=== PATIENT | female | born 1970 | race Caucasian/White ===

== ENCOUNTER 2018-12-07 21:00 | Emergency (ER) | payer MEDICAID, OTHER ==
[~2018-12-07] VITALS: Ht 157.5 cm; Wt 92.0 kg
[~2018-12-07 21:00] MED LIST: ABAT125S; CITA40TA17 PO; LISI10TA4 PO; TERI2.4P SUBCUT
[2018-12-07 21:33] VITALS: BP 124/77
[2018-12-07] MEDS ORDERED: dexamethasone sod phosphate 10mg/ml inj PO STA (23:02)
[2018-12-07] MEDS ORDERED: ketorolac trometh. 30mg/ml inj. IM ONE (23:05)
[2018-12-07] MEDS ORDERED: ROBDML PO (23:07)
[2018-12-07] MEDS ORDERED: AMOX-419 PO (23:07)
[2018-12-07] MEDS ORDERED: ALBU18HF2 INH (23:07)
== END 2018-12-07 23:49 | disposition home or self-care (01) ==
LOC: ER 21:03
DX: J02.9 Acute pharyngitis, unspecified (principal); J04.0 Acute laryngitis; I10 Essential (primary) hypertension; M19.90 Unspecified osteoarthritis, unspecified site; E78.00 Pure hypercholesterolemia, unspecified; Z90.710 Acquired absence of both cervix and uterus; Z88.1 Allergy status to other antibiotic agents
CPT/HCPCS: 96372; 99283; J1100; J1885

== ENCOUNTER 2019-02-17 14:30 | Emergency (ER) | payer MEDICAID ==
[~2019-02-17] VITALS: Ht 157.5 cm; Wt 93.0 kg
[~2019-02-17 14:30] MED LIST changes: +ALBU18HF2 INH; +ROBDML PO
[2019-02-17] MEDS ORDERED: ketorolac trometh. 30mg/ml inj. IV ONE (14:55)
[2019-02-17] MEDS ORDERED: morphine 4 MG/ML inj SYRINge IV ONE (14:55)
[2019-02-17] MEDS ORDERED: ondansetron/PF 4mg/2ml inj IV ONE (14:55)
[2019-02-17 14:59] LABS: BASOPHILS % (AUTO) 0.5 % (0-1); EOSINOPHILS # (AUTO) 0.1 X10'3 (0-0.9); EOSINOPHILS % (AUTO) 1.1 % (0-6); HEMATOCRIT 42.3 % (35.0-45.0); HEMOGLOBIN 14.3 g/dl (12.0-16.0); LYMPHOCYTES # (AUTO) 3.5 X10'3 (1.1-4.8); LYMPHOCYTES % (AUTO) 37.2 % (21-51); MEAN CORPUSCULAR HEMOGLOBIN 30.5 PG (27.0-31.0); MEAN CORPUSCULAR HGB CONC 33.8 g/dL (33.0-36.5); MEAN CORPUSCULAR VOLUME 90.2 FL (78-98); MEAN PLATELET VOLUME 8.1 FL (7.4-10.4); MONOCYTES # (AUTO) 0.5 X10'3 (0-0.9); MONOCYTES % (AUTO) 5.6 % (2-12); NEUTROPHILS # (AUTO) 5.3 X10'3 (1.8-7.7); NEUTROPHILS % (AUTO) 55.6 % (42-75); PLATELET COUNT 261 X10'3 (140-440); RED BLOOD COUNT 4.69 X10'6 (4.20-5.60); RED CELL DISTRIBUTION WIDTH 13.2 % (11.5-14.5); WHITE BLOOD COUNT 9.5 X10'3 (4.5-11.0)
[2019-02-17 15:14] LABS: ALANINE AMINOTRANSFERASE 39 U/L (12-78); ALBUMIN 3.8 G/DL (3.4-5.0); ALKALINE PHOSPHATASE 89 IU/L (46-116); ANION GAP 9 (8-16); ASPARTATE AMINO TRANSFERASE 17 U/L (10-37); BILIRUBIN,TOTAL 0.4 MG/DL (0.1-1.0); BLOOD UREA NITROGEN 10 MG/DL (7-18); BUN/CREATININE RATIO 12.3 (6.6-38.0); CALCIUM 9.3 MG/DL (8.5-10.1); CHLORIDE 104 MMOL/L (99-107); CREATININE 0.81 MG/DL (0.40-0.90); GLUCOSE 221 MG/DL (70-104); LIPASE 64 U/L (73-393); POTASSIUM 3.8 MMOL/L (3.5-5.1); SODIUM 140 MMOL/L (135-145); TOTAL CARBON DIOXIDE 27.5 MMOL/L (24-32); TOTAL PROTEIN 7.5 G/DL (6.4-8.2); eGFR 75 ML/MIN
[2019-02-17 15:33] LABS: URINE HCG NEGATIVE (NEG)
[2019-02-17 15:34] LABS: CLARITY,URINE CLOUDY (Clear); COLOR,URINE YELLOW (Yellow); GLUCOSE, URINE 250 mg/dl (Neg); KETONES,URINE NEGATIVE (Neg); LEUKOCYTE ESTERASE ,URINE MODERATE (Neg); NITRITES, URINE POSITIVE (Neg); OCCULT BLOOD,URINE MODERATE (Neg); PROTEIN,URINE 100 mg/dl (Neg); UROBILINOGEN,URINE 0.2 E.U/dL (0.2-1.0)
[2019-02-17 15:36] LABS: UA COLLECTION TYPE NON-SPECIFIED
[2019-02-17 15:44] LABS: BACTERIA,URINE 1+ /HPF (Neg); MUCUS STRANDS NONE SEEN /LPF (Neg); RENAL CELLS, URINE FEW /HPF; SQUAMOUS EPITHELIAL CELL,UR FEW /LPF (FEW); WBC CLUMPS,URINE MODERATE /HPF (NEGATIVE); WBC,URINE TNTC /HPF (0-4)
[2019-02-17] MEDS ORDERED: CefTRIAXone 2gm/D5W 50ml 50 ML IV ONE (15:50)
[2019-02-17] MEDS ORDERED: ciprofloxacin 250mg tablet PO ONE (16:10)
[2019-02-17] MEDS ORDERED: CIPR-230 PO (16:10)
[2019-02-17 16:35] VITALS: BP 105/52
== END 2019-02-17 16:39 | disposition home or self-care (01) ==
LOC: ER 14:31
DX: N12 Tubulo-interstitial nephritis, not specified as acute or chronic (principal); E78.00 Pure hypercholesterolemia, unspecified; I10 Essential (primary) hypertension; M06.9 Rheumatoid arthritis, unspecified; F32.9 Major depressive disorder, single episode, unspecified; Z90.710 Acquired absence of both cervix and uterus; Z98.890 Other specified postprocedural states; Z88.1 Allergy status to other antibiotic agents; Z79.2 Long term (current) use of antibiotics; Z79.899 Other long term (current) drug therapy
CPT/HCPCS: 36415; 74176; 80053; 81001; 81025; 83690; 85025; 87088; 96365; 96375; 99284; J0696; J1885; J2270; J2405; 87077; 87186

== ENCOUNTER 2019-03-03 12:11 | Emergency (ER) | payer MEDICAID ==
[~2019-03-03] VITALS: Ht 157.5 cm; Wt 93.0 kg
[~2019-03-03 12:11] MED LIST changes: +CIPR-230 PO
[2019-03-03] MEDS ORDERED: normal saline 1000ML IV soln IVB ONE (12:40)
[2019-03-03] MEDS ORDERED: ondansetron/PF 4mg/2ml inj IV ONE (12:40)
[2019-03-03] MEDS ORDERED: ketorolac trometh. 30mg/ml inj. IV ONE (12:40)
[2019-03-03] MEDS: morphine 4 MG/ML inj SYRINge IV PRN ×2 (12:51→13:51)
[2019-03-03 12:54] LABS: BASOPHILS % (AUTO) 0.7 % (0-1); EOSINOPHILS # (AUTO) 0.1 X10'3 (0-0.9); EOSINOPHILS % (AUTO) 1.9 % (0-6); HEMATOCRIT 39.6 % (35.0-45.0); HEMOGLOBIN 13.4 g/dl (12.0-16.0); LYMPHOCYTES # (AUTO) 3.3 X10'3 (1.1-4.8); LYMPHOCYTES % (AUTO) 51.4 % (21-51); MEAN CORPUSCULAR HEMOGLOBIN 30.4 PG (27.0-31.0); MEAN CORPUSCULAR HGB CONC 33.9 g/dL (33.0-36.5); MEAN CORPUSCULAR VOLUME 89.6 FL (78-98); MONOCYTES # (AUTO) 0.4 X10'3 (0-0.9); MONOCYTES % (AUTO) 6.1 % (2-12); NEUTROPHILS # (AUTO) 2.5 X10'3 (1.8-7.7); NEUTROPHILS % (AUTO) 39.9 % (42-75); PLATELET COUNT 249 X10'3 (140-440); RED BLOOD COUNT 4.42 X10'6 (4.20-5.60); WHITE BLOOD COUNT 6.3 X10'3 (4.5-11.0)
--- NOTE | 2019-03-03 13:04 | NUR ---
us in room
[2019-03-03 13:09] LABS: ALANINE AMINOTRANSFERASE 41 U/L (12-78); ALBUMIN 3.7 G/DL (3.4-5.0); ALBUMIN/GLOBULIN RATIO 1.2 (1.1-1.5); ALKALINE PHOSPHATASE 71 IU/L (46-116); ANION GAP 7 (8-16); ASPARTATE AMINO TRANSFERASE 21 U/L (10-37); BILIRUBIN,TOTAL 0.2 MG/DL (0.1-1.0); BLOOD UREA NITROGEN 12 MG/DL (7-18); BUN/CREATININE RATIO 16.2 (6.6-38.0); CHLORIDE 107 MMOL/L (99-107); CREATININE 0.74 MG/DL (0.40-0.90); GLUCOSE 120 MG/DL (70-104); LIPASE 71 U/L (73-393); POTASSIUM 4.1 MMOL/L (3.5-5.1); SODIUM 142 MMOL/L (135-145); TOTAL CARBON DIOXIDE 28.2 MMOL/L (24-32); TOTAL PROTEIN 6.9 G/DL (6.4-8.2); eGFR 83 ML/MIN
[2019-03-03 13:14] LABS: URINE HCG NEGATIVE (NEG)
[2019-03-03 13:15] LABS: CLARITY,URINE CLOUDY (Clear); COLOR,URINE STRAW (Yellow); GLUCOSE, URINE NEGATIVE (Neg); KETONES,URINE NEGATIVE (Neg); LEUKOCYTE ESTERASE ,URINE TRACE (Neg); NITRITES, URINE NEGATIVE (Neg); OCCULT BLOOD,URINE LARGE (Neg); PROTEIN,URINE TRACE mg/dl (Neg); UROBILINOGEN,URINE 0.2 E.U/dL (0.2-1.0)
[2019-03-03 13:18] LABS: UA COLLECTION TYPE CLN CATCH MIDSTREAM
[2019-03-03 13:22] LABS: MUCUS STRANDS FEW /LPF (Neg); SQUAMOUS EPITHELIAL CELL,UR MANY /LPF (FEW)
[2019-03-03 13:23] LABS: BACTERIA,URINE 1+ /HPF (Neg); RBC,URINE TNTC /HPF (0-2)
[2019-03-03] MEDS ORDERED: SULF1TAB49 PO (13:42)
[2019-03-03] MEDS ORDERED: HYDR-3965 PO (13:42)
[2019-03-03 13:47] VITALS: BP 119/81
[2019-03-03 14:04] LABS: PLATELET ESTIMATE NORMAL; TOTAL CELLS COUNTED 100
== END 2019-03-03 14:15 | disposition home or self-care (01) ==
LOC: ER 12:12
DX: N39.0 Urinary tract infection, site not specified (principal); R19.7 Diarrhea, unspecified; E78.00 Pure hypercholesterolemia, unspecified; I10 Essential (primary) hypertension; M06.9 Rheumatoid arthritis, unspecified; F32.9 Major depressive disorder, single episode, unspecified; Z90.710 Acquired absence of both cervix and uterus; Z98.890 Other specified postprocedural states; Z88.1 Allergy status to other antibiotic agents; Z79.2 Long term (current) use of antibiotics; Z79.899 Other long term (current) drug therapy
CPT/HCPCS: 36415; 76775; 80053; 81001; 81025; 83690; 85025; 96361; 96374; 96375; 96376; 99284; J1885; J2270; J2405; J7030

== ENCOUNTER 2019-03-11 21:16 | Inpatient (IN) | payer MEDICAID ==
[~2019-03-11] VITALS: Ht 157.5 cm; Wt 97.1 kg
--- NOTE | 2019-03-11 18:30 | NUR ---
Patient in room ORTHO [facility]8. I have received report from REMEDOIS HAYS and had the opportunity to ask questions and assume patient care. Addendum: 03/12/19 at 9729 by Ruby Rodriguez RN WRONG PT
[~2019-03-11 21:16] MED LIST changes: +SULF1TAB49 PO
[2019-03-11 21:50] LABS: URINE HCG NEGATIVE (NEG)
[2019-03-11 21:52] LABS: CLARITY,URINE CLOUDY (Clear); COLOR,URINE YELLOW (Yellow); GLUCOSE, URINE NEGATIVE (Neg); KETONES,URINE TRACE mg/dl (Neg); LEUKOCYTE ESTERASE ,URINE MODERATE (Neg); NITRITES, URINE NEGATIVE (Neg); OCCULT BLOOD,URINE LARGE (Neg); PH,URINE 6.5 (4.8-8.0); PROTEIN,URINE TRACE mg/dl (Neg)
[2019-03-11 21:55] LABS: UA COLLECTION TYPE VOIDED
[2019-03-11 22:05] LABS: BACTERIA,URINE 1+ /HPF (Neg); RBC,URINE 20-50 /HPF (0-2); SQUAMOUS EPITHELIAL CELL,UR MANY /LPF (FEW)
[2019-03-11] MEDS ORDERED: ondansetron/PF 4mg/2ml inj IV ONE (22:05)
[2019-03-11] MEDS ORDERED: normal saline 1000ML IV soln IVB ONE (22:05)
[2019-03-11] MEDS ORDERED: ketorolac trometh. 30mg/ml inj. IV ONE (22:05)
[2019-03-11] MEDS ORDERED: fentaNYL/PF 50MCG/1 ML 2ML syringe IV ONE (22:05)
[2019-03-11] MEDS ORDERED: acetaminophen 325mg tablet PO ONE (22:05)
[2019-03-11 22:06] LABS: BASOPHILS % (AUTO) 0.4 % (0-1); EOSINOPHILS # (AUTO) 0.2 X10'3 (0-0.9); EOSINOPHILS % (AUTO) 2.2 % (0-6); HEMATOCRIT 39.5 % (35.0-45.0); HEMOGLOBIN 13.3 g/dl (12.0-16.0); LYMPHOCYTES # (AUTO) 4.4 X10'3 (1.1-4.8); LYMPHOCYTES % (AUTO) 54.3 % (21-51); MEAN CORPUSCULAR HEMOGLOBIN 30.2 PG (27.0-31.0); MEAN CORPUSCULAR HGB CONC 33.7 g/dL (33.0-36.5); MEAN CORPUSCULAR VOLUME 89.5 FL (78-98); MEAN PLATELET VOLUME 8.4 FL (7.4-10.4); MONOCYTES # (AUTO) 0.6 X10'3 (0-0.9); MONOCYTES % (AUTO) 7.3 % (2-12); NEUTROPHILS # (AUTO) 2.9 X10'3 (1.8-7.7); NEUTROPHILS % (AUTO) 35.8 % (42-75); PLATELET COUNT 232 X10'3 (140-440); RED BLOOD COUNT 4.41 X10'6 (4.20-5.60); RED CELL DISTRIBUTION WIDTH 13.1 % (11.5-14.5); WHITE BLOOD COUNT 8.1 X10'3 (4.5-11.0)
[2019-03-11 22:13] LABS: ALANINE AMINOTRANSFERASE 47 U/L (12-78); ALBUMIN 3.8 G/DL (3.4-5.0); ALBUMIN/GLOBULIN RATIO 1.2 (1.1-1.5); ALKALINE PHOSPHATASE 72 IU/L (46-116); ANION GAP 8 (8-16); ASPARTATE AMINO TRANSFERASE 26 U/L (10-37); BILIRUBIN,TOTAL 0.3 MG/DL (0.1-1.0); BLOOD UREA NITROGEN 15 MG/DL (7-18); BUN/CREATININE RATIO 16.5 (6.6-38.0); CALCIUM 8.8 MG/DL (8.5-10.1); CHLORIDE 104 MMOL/L (99-107); CREATININE 0.91 MG/DL (0.40-0.90); GLUCOSE 128 MG/DL (70-104); LIPASE 79 U/L (73-393); POTASSIUM 3.9 MMOL/L (3.5-5.1); SODIUM 140 MMOL/L (135-145); TOTAL CARBON DIOXIDE 27.7 MMOL/L (24-32); TOTAL PROTEIN 6.9 G/DL (6.4-8.2); eGFR 66 ML/MIN
--- NOTE | 2019-03-11 22:18 | NUR ---
Patient to CT
[2019-03-11] MEDS: fentaNYL/PF 50MCG/1 ML 2ML syringe IV PRN (23:07)
[2019-03-11 23:30] LABS: TOTAL CELLS COUNTED 100
[2019-03-11 23:31] LABS: PLATELET ESTIMATE NORMAL
[2019-03-12] MEDS ORDERED: vancomycin/NS 1 GM ADD-VANTAGE 250 ML IV ONE ×2 (00:15→01:35)
[2019-03-12] MEDS ORDERED: levoFLOXACIN-Levaquin 750MG/D5 150 ML IV ONE (00:15)
[2019-03-12] MEDS ORDERED: ETAN50DI3 SQ (00:17)
[2019-03-12] MEDS ORDERED: METF500T PO (00:17)
[2019-03-12] MEDS ORDERED: ASPI81TA52 PO (00:18)
[2019-03-12] MEDS: fentaNYL/PF 50MCG/1 ML 2ML syringe IV PRN (00:39)
[2019-03-12] MEDS ORDERED: CADD PCA waste documentation MC PRN (00:40)
[2019-03-12] MEDS ORDERED: naloxone 0.4 mg/ml inj IV PRN (00:40)
--- NOTE | 2019-03-12 01:30 | NUR ---
PT ARRIVED TO ROOM 4018. AMBULATED TO TO BED. PT HAS BEEN ORIENTED TO THE ROOM. VSS. RECEIVED REPORT FROM ER NURSE, PRIOR TO PT'S ARRIVAL
[2019-03-12 01:35] VITALS: BP 140/65
[2019-03-12] MEDS: normal saline 1000ml 1,000 ML IV SCH ×3 (01:38→12:28)
[2019-03-12] MEDS: HYDROmorphone/NS 1 mg/ml CADD 50 ML IV SCH ×12 (02:17→23:00)
--- NOTE | 2019-03-12 06:24 | NUR ---
Problems reprioritized. Patient report given, questions answered & plan of care reviewed with REMEDIOS [place].
[2019-03-12 06:39] VITALS: BP 96/51
[2019-03-12] MEDS: citalopram 20mg tablet PO SCH (07:44)
[2019-03-12] MEDS: lisinopril 10 MG tablet PO SCH (07:51)
[2019-03-12] MEDS: VANCOmycin 1250MG/NS 250ml Bag 250 ML IV SCH (12:30)
--- NOTE | 2019-03-12 14:18 | NUR ---
DM Consult: Pt last A1C 7.2016. LUIS d/w RN for new A1C in order to determine if DM ed needed; currently pending. Addendum: 03/12/19 at [address] Amended: Links added.
[2019-03-12 18:00] VITALS: BP 125/54
--- NOTE | 2019-03-12 18:30 | NUR ---
Patient in room ORTHO 4018. I have received report from REMEDIOS [place] and had the opportunity to ask questions and assume patient care.
[2019-03-12] MEDS: ondansetron/PF 4mg/2ml inj IV PRN (20:34)
[2019-03-12 22:00] VITALS: BP 121/62
[2019-03-12] MEDS: levoFLOXACIN-Levaquin 500mg/D5 100 ML IV SCH (23:22)
[2019-03-13] MEDS: VANCOmycin 1250MG/NS 250ml Bag 250 ML IV SCH ×2 (00:32→11:39)
[2019-03-13] MEDS: HYDROmorphone/NS 1 mg/ml CADD 50 ML IV SCH ×12 (01:00→23:00)
[2019-03-13] MEDS: normal saline 1000ml 1,000 ML IV SCH ×3 (05:05→16:57)
[2019-03-13 06:00] VITALS: BP 122/58
--- NOTE | 2019-03-13 06:07 | NUR ---
Problems reprioritized. Patient report given, questions answered & plan of care reviewed with RMEEDIOS ELKINS.
--- NOTE | 2019-03-13 06:17 | NUR ---
received report from bony saul
[2019-03-13 07:02] LABS: BASOPHILS % (AUTO) 0.3 % (0-1); EOSINOPHILS % (AUTO) 0.3 % (0-6); HEMATOCRIT 41.2 % (35.0-45.0); HEMOGLOBIN 13.8 g/dl (12.0-16.0); LYMPHOCYTES # (AUTO) 1.8 X10'3 (1.1-4.8); LYMPHOCYTES % (AUTO) 22.4 % (21-51); MEAN CORPUSCULAR HEMOGLOBIN 30.6 PG (27.0-31.0); MEAN CORPUSCULAR HGB CONC 33.5 g/dL (33.0-36.5); MEAN CORPUSCULAR VOLUME 91.5 FL (78-98); MEAN PLATELET VOLUME 8.5 FL (7.4-10.4); MONOCYTES # (AUTO) 0.4 X10'3 (0-0.9); MONOCYTES % (AUTO) 4.8 % (2-12); NEUTROPHILS # (AUTO) 5.7 X10'3 (1.8-7.7); NEUTROPHILS % (AUTO) 72.2 % (42-75); PLATELET COUNT 213 X10'3 (140-440); RED CELL DISTRIBUTION WIDTH 13.3 % (11.5-14.5); WHITE BLOOD COUNT 7.8 X10'3 (4.5-11.0)
[2019-03-13 07:26] LABS: HEMOGLOBIN A1C 6.7 % (4.5-6.2)
[2019-03-13 07:30] LABS: ALANINE AMINOTRANSFERASE 46 U/L (12-78); ALBUMIN 3.6 G/DL (3.4-5.0); ALBUMIN/GLOBULIN RATIO 1.1 (1.1-1.5); ALKALINE PHOSPHATASE 69 IU/L (46-116); ANION GAP 8 (8-16); ASPARTATE AMINO TRANSFERASE 28 U/L (10-37); BILIRUBIN,TOTAL 0.3 MG/DL (0.1-1.0); BLOOD UREA NITROGEN 10 MG/DL (7-18); BUN/CREATININE RATIO 12.5 (6.6-38.0); CALCIUM 8.1 MG/DL (8.5-10.1); CHLORIDE 107 MMOL/L (99-107); GLUCOSE 161 MG/DL (70-104); POTASSIUM 4.1 MMOL/L (3.5-5.1); SODIUM 142 MMOL/L (135-145); TOTAL CARBON DIOXIDE 26.8 MMOL/L (24-32); TOTAL PROTEIN 6.8 G/DL (6.4-8.2); eGFR 76 ML/MIN
[2019-03-13] MEDS: citalopram 20mg tablet PO SCH (07:33)
[2019-03-13] MEDS: lisinopril 10 MG tablet PO SCH (07:33)
[2019-03-13 10:00] VITALS: BP 104/65
--- NOTE | 2019-03-13 10:23 | NUR ---
pt has been npo since midnoc
[2019-03-13] MEDS: ondansetron/PF 4mg/2ml inj IV PRN ×2 (11:36→19:26)
--- NOTE | 2019-03-13 11:53 | NUR ---
F/u: Pt A1C results <7 and not appropriate for DM ed at this time. Addendum: 03/13/19 at [address] Amended: Links added.
[2019-03-13 18:00] VITALS: BP 114/61
--- NOTE | 2019-03-13 18:28 | NUR ---
GAVE REPORT TO REMEDIOS VEE
--- NOTE | 2019-03-13 18:30 | NUR ---
Patient in room ORTHO 4018. I have received report from REMEDIOS ELKINS and had the opportunity to ask questions and assume patient care.
[2019-03-13] MEDS: lactobacillus rhamnosus 10,000 MMU CELLS/CAPSULE PO SCH (19:26)
[2019-03-13 22:00] VITALS: BP 115/62
[2019-03-13] MEDS: levoFLOXACIN-Levaquin 500mg/D5 100 ML IV SCH (23:24)
[2019-03-13] MEDS ORDERED: VANCOMYCIN LEVEL IV ONE (23:30)
[2019-03-14] VITALS (13 sets, daily range): BP systolic 110–140; BP diastolic 61–90
[2019-03-14] MEDS: VANCOmycin 1250MG/NS 250ml Bag 250 ML IV SCH (00:43)
[2019-03-14] MEDS: HYDROmorphone/NS 1 mg/ml CADD 50 ML IV SCH ×7 (00:43→15:00)
[2019-03-14 05:47] LABS: BASOPHILS % (AUTO) 0.5 % (0-1); EOSINOPHILS # (AUTO) 0.1 X10'3 (0-0.9); EOSINOPHILS % (AUTO) 2.5 % (0-6); HEMOGLOBIN 11.7 g/dl (12.0-16.0); LYMPHOCYTES # (AUTO) 3.1 X10'3 (1.1-4.8); LYMPHOCYTES % (AUTO) 53.3 % (21-51); MEAN CORPUSCULAR HEMOGLOBIN 31.2 PG (27.0-31.0); MEAN CORPUSCULAR HGB CONC 34.4 g/dL (33.0-36.5); MEAN CORPUSCULAR VOLUME 90.9 FL (78-98); MEAN PLATELET VOLUME 8.4 FL (7.4-10.4); MONOCYTES # (AUTO) 0.5 X10'3 (0-0.9); MONOCYTES % (AUTO) 8.8 % (2-12); NEUTROPHILS % (AUTO) 34.9 % (42-75); PLATELET COUNT 164 X10'3 (140-440); RED BLOOD COUNT 3.74 X10'6 (4.20-5.60); RED CELL DISTRIBUTION WIDTH 13.2 % (11.5-14.5); WHITE BLOOD COUNT 5.8 X10'3 (4.5-11.0)
[2019-03-14 06:03] LABS: ALANINE AMINOTRANSFERASE 31 U/L (12-78); ALBUMIN 2.9 G/DL (3.4-5.0); ALBUMIN/GLOBULIN RATIO 1.1 (1.1-1.5); ALKALINE PHOSPHATASE 53 IU/L (46-116); ANION GAP 5 (8-16); ASPARTATE AMINO TRANSFERASE 13 U/L (10-37); BILIRUBIN,TOTAL 0.2 MG/DL (0.1-1.0); BLOOD UREA NITROGEN 9 MG/DL (7-18); BUN/CREATININE RATIO 15.5 (6.6-38.0); CALCIUM 7.7 MG/DL (8.5-10.1); CHLORIDE 110 MMOL/L (99-107); CREATININE 0.58 MG/DL (0.40-0.90); GLUCOSE 152 MG/DL (70-104); SODIUM 143 MMOL/L (135-145); TOTAL CARBON DIOXIDE 27.7 MMOL/L (24-32); TOTAL PROTEIN 5.6 G/DL (6.4-8.2); eGFR > 90 ML/MIN
--- NOTE | 2019-03-14 06:28 | NUR ---
Problems reprioritized. Patient report given, questions answered & plan of care reviewed with REMEDIOS ALICIA.
--- NOTE | 2019-03-14 06:30 | NUR ---
Patient in room ORTHO 4018. I have received report from REMEDIOS Shi and had the opportunity to ask questions and assume patient care.
--- NOTE | 2019-03-14 06:54 | NUR ---
Patient to OR.
[2019-03-14] MEDS ORDERED: ringers solution, lacted 1,000 ML IV SCH (07:13)
[2019-03-14] MEDS ORDERED: ondansetron/PF 4mg/2ml inj IV PRN (07:15)
[2019-03-14] MEDS ORDERED: proCHLORperazine 10 MG/2 ml inj IV PRN (07:15)
[2019-03-14] MEDS ORDERED: morphine 4 MG/ML inj SYRINge IV PRN ×2 (07:15)
[2019-03-14] MEDS ORDERED: meperidine/PF 25mg/ml syringe IV PRN ×3 (07:15)
[2019-03-14] MEDS ORDERED: sevoflurane 250ml liquid IH ONE (07:16)
[2019-03-14] MEDS ORDERED: fentaNYL/PF 50MCG/1 ML 2ML syringe ONE (07:19)
[2019-03-14] MEDS ORDERED: midazolam 2 mg/2 ml injection ONE (07:19)
[2019-03-14] MEDS ORDERED: propofol inj 20 ML IV ONE (07:37)
--- NOTE | 2019-03-14 07:46 | NUR ---
Received from OR via BED , accompanied by Anesthesiologist DR DORANTES and report given by Anesthesiologist. PT DROWSY, DENIES PAIN, NAUSEATED, 4 MG ZOFRAN GIVEN, PT RESTING QUIETLY, NO S/S OF DISTRESS/DISCOMFORT. Addendum: 03/14/19 at 0821 by Snehal Toscano RN Amended: Links added.
--- NOTE | 2019-03-14 09:16 | NUR ---
Report called to receiving nurse. Transferred via BED, NO Belongings, SIDE RAILS UP X 2, BLL, CALL LIGHT GIVEN TO PT, PT ORIENTED TO SAFETY, PTS AT BEDSIDE, RECEIVING RN NOTIFIED OF PTS ARRIVAL. Special Issues communicated to receiving nurse. YES. Addendum: 03/14/19 at 0934 by Snehal Toscano RN Amended: Links added.
[2019-03-14] MEDS: lactobacillus rhamnosus 10,000 MMU CELLS/CAPSULE PO SCH ×2 (11:56→19:42)
[2019-03-14] MEDS: citalopram 20mg tablet PO SCH (11:56)
[2019-03-14] MEDS: lisinopril 10 MG tablet PO SCH (11:57)
[2019-03-14] MEDS: normal saline 1000ml 1,000 ML IV SCH ×2 (12:34→22:58)
[2019-03-14] MEDS: HYDROcodone/acetaminophen 10/325mg tab PO PRN ×2 (17:10→23:52)
--- NOTE | 2019-03-14 18:24 | NUR ---
Problems reprioritized. Patient report given, questions answered & plan of care reviewed with REMEDIOS Castelan.
--- NOTE | 2019-03-14 18:28 | NUR ---
Patient in room ORTHO 4018. I have received report from REMEDIOS Olivares and had the opportunity to ask questions and assume patient care.
[2019-03-14] MEDS ORDERED: insulin Lispro (HumaLOG) vial - multi-dose SQ SCH (19:05)
[2019-03-14] MEDS ORDERED: dextrose ORAL solution 15 GM/59 ML bottle PO PRN ×2 (19:05)
[2019-03-14] MEDS ORDERED: glucagon, human recombinant 1mg kit SUBCUT PRN (19:05)
[2019-03-14] MEDS ORDERED: dextrose 50%-water 50ml dispensing syringe IV PRN ×2 (19:05)
[2019-03-15 02:00] VITALS: BP 108/57
[2019-03-15 05:35] LABS: ALANINE AMINOTRANSFERASE 31 U/L (12-78); ALBUMIN 2.9 G/DL (3.4-5.0); ALBUMIN/GLOBULIN RATIO 1.1 (1.1-1.5); ALKALINE PHOSPHATASE 50 IU/L (46-116); ANION GAP 7 (8-16); ASPARTATE AMINO TRANSFERASE 20 U/L (10-37); BILIRUBIN,TOTAL 0.2 MG/DL (0.1-1.0); BLOOD UREA NITROGEN 5 MG/DL (7-18); BUN/CREATININE RATIO 7.7 (6.6-38.0); CALCIUM 7.8 MG/DL (8.5-10.1); CHLORIDE 112 MMOL/L (99-107); CREATININE 0.65 MG/DL (0.40-0.90); GLUCOSE 133 MG/DL (70-104); POTASSIUM 3.7 MMOL/L (3.5-5.1); SODIUM 146 MMOL/L (135-145); TOTAL CARBON DIOXIDE 27.4 MMOL/L (24-32); TOTAL PROTEIN 5.5 G/DL (6.4-8.2); eGFR > 90 ML/MIN
[2019-03-15 05:37] LABS: BASOPHILS % (AUTO) 0.3 % (0-1); EOSINOPHILS # (AUTO) 0.2 X10'3 (0-0.9); EOSINOPHILS % (AUTO) 3.6 % (0-6); HEMATOCRIT 33.9 % (35.0-45.0); HEMOGLOBIN 11.6 g/dl (12.0-16.0); LYMPHOCYTES # (AUTO) 3.3 X10'3 (1.1-4.8); LYMPHOCYTES % (AUTO) 51.5 % (21-51); MEAN CORPUSCULAR HEMOGLOBIN 30.8 PG (27.0-31.0); MEAN CORPUSCULAR HGB CONC 34.1 g/dL (33.0-36.5); MEAN CORPUSCULAR VOLUME 90.1 FL (78-98); MEAN PLATELET VOLUME 8.1 FL (7.4-10.4); MONOCYTES # (AUTO) 0.4 X10'3 (0-0.9); MONOCYTES % (AUTO) 6.7 % (2-12); NEUTROPHILS # (AUTO) 2.4 X10'3 (1.8-7.7); NEUTROPHILS % (AUTO) 37.9 % (42-75); PLATELET COUNT 177 X10'3 (140-440); RED BLOOD COUNT 3.76 X10'6 (4.20-5.60); RED CELL DISTRIBUTION WIDTH 13.1 % (11.5-14.5); WHITE BLOOD COUNT 6.4 X10'3 (4.5-11.0)
[2019-03-15 06:00] VITALS: BP 116/53
--- NOTE | 2019-03-15 06:32 | NUR ---
Problems reprioritized. Patient report given, questions answered & plan of care reviewed with REMEDIOS Frank.
[2019-03-15] MEDS: lactobacillus rhamnosus 10,000 MMU CELLS/CAPSULE PO SCH (08:30)
[2019-03-15] MEDS: citalopram 20mg tablet PO SCH (08:30)
[2019-03-15] MEDS: lisinopril 10 MG tablet PO SCH (08:32)
[2019-03-15 10:00] VITALS: BP 124/69
[2019-03-15] MEDS: normal saline 1000ml 1,000 ML IV SCH (10:09)
[2019-03-15] MEDS ORDERED: LEVO500T89 PO (10:14)
[2019-03-15] MEDS ORDERED: levoFLOXACIN 500mg tablet PO SCH (11:00)
[2019-03-15] MEDS ORDERED: VANCOMYCIN LEVEL IV ONE (23:30)
== END 2019-03-15 12:45 | disposition home or self-care (01) | DRG 465 ==
LOC: ER 21:17 → ORTHO 4S 03-12 01:44 → CMPBEDREQ 03-12 01:48
PROVIDERS: ADMIT Internal Medicine; ATTEND Family Medicine
PROC: 0T768DZ Dilation of Right Ureter with Intraluminal Device, Via Natural or Artificial Opening Endoscopic (ICD-10-PCS; principal; 2019-03-14 07:16)
DX: N13.2 Hydronephrosis with renal and ureteral calculous obstruction (principal); N17.9 Acute kidney failure, unspecified; E87.1 Hypo-osmolality and hyponatremia; D64.9 Anemia, unspecified; E11.9 Type 2 diabetes mellitus without complications; E78.00 Pure hypercholesterolemia, unspecified; F41.9 Anxiety disorder, unspecified; F32.9 Major depressive disorder, single episode, unspecified; I10 Essential (primary) hypertension; M06.9 Rheumatoid arthritis, unspecified; Z90.710 Acquired absence of both cervix and uterus; Z98.891 History of uterine scar from previous surgery; Z87.440 Personal history of urinary (tract) infections; Z88.1 Allergy status to other antibiotic agents; Z79.899 Other long term (current) drug therapy; Z79.82 Long term (current) use of aspirin
CPT/HCPCS: 36415; 74176; 76000; 76937; 80053; 80202; 81001; 81025; 82948; 83036; 83690; 85025; 87081; 96374; 96375; 99285; A4402; A4618; C1758; C1769; C2617; G0378; J1170; J1815; J1885; J1956; J2250; J2405; J2704; J3010; J3370; J7030; J7120

== ENCOUNTER 2019-06-24 13:04 | Day surgery (SDC) | payer MEDICARE, MEDICAID ==
[~2019-06-24] VITALS: Ht 157.5 cm; Wt 91.8 kg
[~2019-06-24 13:04] MED LIST changes: -ABAT125S; -ALBU18HF2 INH; +ASPI81TA52 PO; -CIPR-230 PO; +ETAN50DI3 SQ; +LEVO500T89 PO; +METF500T PO; -ROBDML PO; -SULF1TAB49 PO; -TERI2.4P SUBCUT
[2019-06-24 13:12] VITALS: BP 134/74
[2019-06-24] MEDS ORDERED: LIDOcaine Viscous 15ml cup ONE (14:01)
[2019-06-24] MEDS ORDERED: fentaNYL/PF 50MCG/1 ML 2ML syringe ONE (14:01)
[2019-06-24] MEDS ORDERED: MIDAZolam 5mg/5ml vial ONE (14:01)
[2019-06-24 14:33] VITALS: BP 143/79
[2019-06-24 14:43] VITALS: BP 131/73
[2019-06-24 14:53] VITALS: BP 140/73
[2019-06-24 15:03] VITALS: BP 126/68
== END 2019-06-24 15:10 | disposition home or self-care (01) ==
LOC: GI LAB 13:04
PROVIDERS: ATTEND Internal Medicine Gastroenterology
DX: K22.2 Esophageal obstruction (principal); R13.14 Dysphagia, pharyngoesophageal phase; K22.8 Other specified diseases of esophagus; K31.89 Other diseases of stomach and duodenum
CPT/HCPCS: 43236; 43249; 99152; C1726; J0585; J2250; J3010; J7040; 43243; 99153; A4620; G0500

== ENCOUNTER 2019-07-15 05:21 | Day surgery (SDC) | payer MEDICARE, MEDICAID ==
[2019-07-08 14:31] LABS: BASOPHILS % (AUTO) 0.8 % (0-1); EOSINOPHILS # (AUTO) 0.1 X10'3 (0-0.9); LYMPHOCYTES # (AUTO) 2.8 X10'3 (1.1-4.8); LYMPHOCYTES % (AUTO) 44.8 % (21-51); MEAN CORPUSCULAR HGB CONC 33.7 g/dL (33.0-36.5); MEAN CORPUSCULAR VOLUME 91.9 FL (78-98); MONOCYTES # (AUTO) 0.3 X10'3 (0-0.9); MONOCYTES % (AUTO) 4.8 % (2-12); NEUTROPHILS % (AUTO) 47.6 % (42-75); PRE OP HEMATOCRIT 42.1 % (35.0-45.0); PRE OP HEMOGLOBIN 14.2 g/dL (12.0-16.0); PRE OP PLATELET COUNT 228 X10'3 (140-440); RED BLOOD COUNT 4.58 X10'6 (4.20-5.60)
[2019-07-08 14:45] LABS: ALBUMIN 3.7 G/DL (3.4-5.0); ALBUMIN/GLOBULIN RATIO 1.1 (1.1-1.5); ALKALINE PHOSPHATASE 77 IU/L (46-116); BLOOD UREA NITROGEN 16 MG/DL (7-18); CALCIUM 8.7 MG/DL (8.5-10.1); CHLORIDE 102 MMOL/L (99-107); PRE OP ALT 38 U/L (30-65); PRE OP ANION GAP 9 (8-16); PRE OP AST 18 U/L (10-37); PRE OP BILIRUB, TOTAL 0.3 MG/DL (0.0-1.0); PRE OP POTASSIUM 4.1 MMOL/L (3.4-5.1); PRE OP SODIUM 138 MMOL/L (135-145); eGFR 76 ML/MIN
[2019-07-08 14:49] LABS: PRE OP GLUCOSE 252 MG/DL (70-104)
[~2019-07-15] VITALS: Ht 157.5 cm; Wt 99.0 kg
[2019-07-15] VITALS (16 sets, daily range): BP systolic 115–156; BP diastolic 55–90
[~2019-07-15 05:21] MED LIST changes: +LACT1CAP65 PO; -LEVO500T89 PO; +ringers solution, lacted 1,000 ML IV SCH
[2019-07-15] MEDS ORDERED: cefazolin/dext.iso 2gm/100ml 100 ML IV ONE (05:30)
[2019-07-15] MEDS ORDERED: famotidine 10mg tablet PO ONE (05:30)
[2019-07-15] MEDS ORDERED: LIDOcaine 1% (10mg/ml) 2ml vial ONE (05:36)
[2019-07-15] MEDS ORDERED: BUPIVAcaine/PF 2.5mg/ml (0.25%) 10ml vial ONE ×2 (06:41→06:42)
[2019-07-15] MEDS ORDERED: sevoflurane 250ml liquid IH ONE (07:16)
[2019-07-15] MEDS ORDERED: fentaNYL/PF 50MCG/1 ML 2ML syringe ONE (07:24)
[2019-07-15] MEDS ORDERED: midazolam 2 mg/2 ml injection ONE ×2 (07:24→07:26)
[2019-07-15] MEDS ORDERED: morphine 4 MG/ML inj SYRINge IV PRN ×2 (08:20)
[2019-07-15] MEDS ORDERED: proCHLORperazine 10 MG/2 ml inj IV PRN (08:20)
[2019-07-15] MEDS ORDERED: meperidine/PF 25mg/ml syringe IV PRN ×3 (08:20)
[2019-07-15] MEDS ORDERED: ringers solution, lacted 1,000 ML IV SCH (08:20)
[2019-07-15] MEDS ORDERED: ondansetron/PF 4mg/2ml inj IV PRN (08:20)
[2019-07-15] MEDS ORDERED: LIDOcaine 1%/PF 5ML 10 MG/ML VIAL ONE (08:22)
[2019-07-15] MEDS ORDERED: rocuronium 10mg/ml inj IV ONE (08:22)
[2019-07-15] MEDS ORDERED: glycopyrrolate 0.2mg/ml inj ONE (08:22)
[2019-07-15] MEDS ORDERED: ondansetron/PF 4mg/2ml inj ONE (08:22)
[2019-07-15] MEDS ORDERED: neostigmine methylsulfate 1 MG/ML 10ml vial ONE (08:22)
[2019-07-15] MEDS ORDERED: propofol inj 20 ML IV ONE (08:22)
[2019-07-15] MEDS ORDERED: ROPIVAcaine 0.5% (5mg/ml) 30ml vial ONE (08:22)
--- NOTE | 2019-07-15 09:40 | NUR ---
ADMITTED TO PACU FROM OR ACCOMPANIED BY ANESTHESIA. INTIAL PHYSICAL ASSESSMENT DONE AND RECORDED. REPORT RECEIVED FROM ANESTHESIA.
[2019-07-15] MEDS ORDERED: ketorolac trometh. 30mg/ml inj. IV ONE (10:50)
[2019-07-15] MEDS ORDERED: acetaminophen 1,000mg/100ml IV 100 ML IV ONE (10:50)
[2019-07-15] MEDS ORDERED: HYDROmorphone 1 mg/ml syringe IM ONE (11:00)
[2019-07-15] MEDS ORDERED: HYDROmorphone 1 mg/ml syringe ONE (11:02)
[2019-07-15] MEDS ORDERED: HYDROcodone/acetaminophen 10/325mg tab PO ONE (11:55)
--- NOTE | 2019-07-15 12:00 | NUR ---
DISCHARGE CRITERIA MET, DISCHARGE INSTRUCTIONS GIVEN, DEMONSTRATES VERBAL UNDERSTANDING. DISCHARGED HOME IN GOOD CONDITION. EVENTFUL PACU STAY IN REGARDS TO PAIN CONTROL. NUMEROUS NARCOTICS GIVEN ALONG WITH IV TYLENOL AND TORADOL. MEDICATED WITH NORCO PRIOR TO DISCHARGE.
== END 2019-07-15 12:00 | disposition home or self-care (01) ==
LOC: PAS 05:21
PROVIDERS: ATTEND Orthopaedic Surgery Hand Surgery
DX: T84.098A Other mechanical complication of other internal joint prosthesis, initial encounter (principal); E11.9 Type 2 diabetes mellitus without complications; I10 Essential (primary) hypertension; G47.33 Obstructive sleep apnea (adult) (pediatric); F41.9 Anxiety disorder, unspecified; E66.9 Obesity, unspecified; G89.18 Other acute postprocedural pain; Z88.1 Allergy status to other antibiotic agents; Z79.899 Other long term (current) drug therapy; Z79.82 Long term (current) use of aspirin; Z90.710 Acquired absence of both cervix and uterus; Z98.890 Other specified postprocedural states; Y83.8 Other surgical procedures as the cause of abnormal reaction of the patient, or of later complication, without mention of misadventure at the time of the procedure; Y92.89 Other specified places as the place of occurrence of the external cause
CPT/HCPCS: 25999; 26320; 36415; 64417; 80053; 82948; 85025; A6222; A6402; C1713; C1776; J0131; J1170; J1885; J2001; J2175; J2250; J2270; J2405; J2704; J2710; J3010; J3490; J7120; A4215; A4618; A6449; A7000; J2795

== ENCOUNTER 2019-12-19 15:13 | Emergency (ER) | payer MEDICARE, MEDICAID ==
[~2019-12-19] VITALS: Ht 152.4 cm; Wt 92.4 kg
[~2019-12-19 15:13] MED LIST changes: -ringers solution, lacted 1,000 ML IV SCH
[2019-12-19 16:05] LABS: CLARITY,URINE SLIGHTLY CLOUDY (Clear); COLOR,URINE YELLOW (Yellow); GLUCOSE, URINE NEGATIVE (Neg); KETONES,URINE NEGATIVE (Neg); LEUKOCYTE ESTERASE ,URINE TRACE (Neg); NITRITES, URINE NEGATIVE (Neg); OCCULT BLOOD,URINE NEGATIVE (Neg); PROTEIN,URINE NEGATIVE (Neg); URINE HCG NEGATIVE (NEG); UROBILINOGEN,URINE 0.2 E.U/dL (0.2-1.0)
[2019-12-19 16:05] LABS: BASOPHILS % (AUTO) 0.5 % (0-1); EOSINOPHILS # (AUTO) 0.2 X10'3 (0-0.9); EOSINOPHILS % (AUTO) 2.8 % (0-6); HEMATOCRIT 43.2 % (35.0-45.0); HEMOGLOBIN 14.4 g/dl (12.0-16.0); LYMPHOCYTES # (AUTO) 3.2 X10'3 (1.1-4.8); LYMPHOCYTES % (AUTO) 55.3 % (21-51); MEAN CORPUSCULAR HEMOGLOBIN 29.9 PG (27.0-31.0); MEAN CORPUSCULAR HGB CONC 33.5 g/dL (33.0-36.5); MEAN CORPUSCULAR VOLUME 89.3 FL (78-98); MEAN PLATELET VOLUME 9.1 FL (7.4-10.4); MONOCYTES # (AUTO) 0.4 X10'3 (0-0.9); MONOCYTES % (AUTO) 6.6 % (2-12); NEUTROPHILS % (AUTO) 34.8 % (42-75); PLATELET COUNT 250 X10'3 (140-440); RED BLOOD COUNT 4.83 X10'6 (4.20-5.60); RED CELL DISTRIBUTION WIDTH 12.9 % (11.5-14.5); WHITE BLOOD COUNT 5.9 X10'3 (4.5-11.0)
[2019-12-19 16:20] LABS: UA COLLECTION TYPE CLN CATCH MIDSTREAM
[2019-12-19 16:24] LABS: BACTERIA,URINE 2+ /HPF (Neg); MUCUS STRANDS MODERATE /LPF (Neg); RBC,URINE NONE SEEN /HPF (0-2); SQUAMOUS EPITHELIAL CELL,UR MANY /LPF (FEW); WBC,URINE 0-4 /HPF (0-4); YEAST FEW /HPF (NEGATIVE)
[2019-12-19 16:24] LABS: ALANINE AMINOTRANSFERASE 110 U/L (12-78); ALBUMIN 4.1 G/DL (3.4-5.0); ALBUMIN/GLOBULIN RATIO 1.2 (1.1-1.5); ALKALINE PHOSPHATASE 98 IU/L (46-116); ANION GAP 8 (8-16); ASPARTATE AMINO TRANSFERASE 94 U/L (10-37); BILIRUBIN,TOTAL 0.3 MG/DL (0.1-1.0); BLOOD UREA NITROGEN 13 MG/DL (7-18); BUN/CREATININE RATIO 16.5 (6.6-38.0); CHLORIDE 104 MMOL/L (99-107); CREATININE 0.79 MG/DL (0.40-0.90); GLUCOSE 163 MG/DL (70-104); LIPASE 92 U/L (73-393); POTASSIUM 3.7 MMOL/L (3.5-5.1); SODIUM 141 MMOL/L (135-145); TOTAL CARBON DIOXIDE 28.9 MMOL/L (24-32); TOTAL PROTEIN 7.4 G/DL (6.4-8.2); eGFR 77 ML/MIN
[2019-12-19] MEDS ORDERED: acetaminophen 325mg tablet PO ONE (17:05)
[2019-12-19] MEDS ORDERED: morphine 4 MG/ML inj SYRINge IM ONE (17:05)
[2019-12-19] MEDS ORDERED: ondansetron 4mg rapidly disintigrating tab PO ONE (17:05)
[2019-12-19 17:32] LABS: TOTAL CELLS COUNTED 100
[2019-12-19 17:33] LABS: PLATELET ESTIMATE NORMAL
[2019-12-19] MEDS ORDERED: HYDROcodone/acetaminophen 10/325mg tab PO ONE (18:15)
[2019-12-19] MEDS ORDERED: ketorolac trometh. 30mg/ml inj. IM ONE (18:20)
[2019-12-19] MEDS ORDERED: HYDR-3965 PO (18:21)
[2019-12-19] MEDS ORDERED: BACDS PO (18:21)
[2019-12-19] MEDS ORDERED: sulfamethoxazole/trimethoprim DS (800/160mg) tablet PO ONE (18:25)
[2019-12-19 18:32] VITALS: BP 127/70
== END 2019-12-19 18:38 | disposition home or self-care (01) ==
LOC: ER 15:14
DX: R59.1 Generalized enlarged lymph nodes (principal); R10.32 Left lower quadrant pain; E78.00 Pure hypercholesterolemia, unspecified; I10 Essential (primary) hypertension; E11.9 Type 2 diabetes mellitus without complications; M06.9 Rheumatoid arthritis, unspecified; F41.9 Anxiety disorder, unspecified; F32.9 Major depressive disorder, single episode, unspecified; Z90.710 Acquired absence of both cervix and uterus; Z98.890 Other specified postprocedural states; Z88.1 Allergy status to other antibiotic agents; Z79.82 Long term (current) use of aspirin; Z79.2 Long term (current) use of antibiotics; Z79.899 Other long term (current) drug therapy
CPT/HCPCS: 80053; 81001; 81025; 83690; 85025; 93971; 96372; 99284; J1885; J2270

== ENCOUNTER 2020-04-16 06:36 | Day surgery (SDC) | payer MEDICARE, OTHER ==
[~2020-04-16] VITALS: Ht 157.5 cm; Wt 97.7 kg
[~2020-04-16 06:36] MED LIST changes: +LIDOcaine Viscous 15ml cup MM ONE; +normal saline 500ml IV soln 500 ML IV ONE; +simethicone 40mg/0.6ml oral drops 30ml PO ONE
[2020-04-16 06:44] VITALS: BP 142/80
[2020-04-16] MEDS ORDERED: MIDAZolam 5mg/5ml vial ONE (07:12)
[2020-04-16] MEDS ORDERED: fentaNYL/PF 50MCG/1 ML 2ML syringe ONE (07:12)
[2020-04-16] MEDS ORDERED: LIDOcaine Viscous 15ml cup ONE (07:12)
[2020-04-16 07:55] VITALS: BP 135/95
[2020-04-16 08:05] VITALS: BP 156/87
[2020-04-16 08:15] VITALS: BP 135/75
[2020-04-16 08:25] VITALS: BP 97/57
== END 2020-04-16 08:45 | disposition home or self-care (01) ==
LOC: GI LAB 06:36
PROVIDERS: ATTEND Internal Medicine Gastroenterology
DX: K22.0 Achalasia of cardia (principal); Z79.899 Other long term (current) drug therapy
CPT/HCPCS: 43236; 43249; C1726; G0500; J0585; J2250; J3010; J7040; 43243; 99152; 99153; A4620

== ENCOUNTER 2020-06-15 06:03 | Day surgery (SDC) | payer MEDICARE, MEDICAID ==
[2020-06-08 16:21] LABS: BASOPHILS % (AUTO) 0.7 % (0-1); EOSINOPHILS # (AUTO) 0.2 X10'3 (0-0.9); EOSINOPHILS % (AUTO) 2.2 % (0-6); LYMPHOCYTES # (AUTO) 3.4 X10'3 (1.1-4.8); LYMPHOCYTES % (AUTO) 47.4 % (21-51); MEAN CORPUSCULAR HEMOGLOBIN 30.6 PG (27.0-31.0); MEAN CORPUSCULAR VOLUME 90.1 FL (78-98); MEAN PLATELET VOLUME 8.4 FL (7.4-10.4); MONOCYTES # (AUTO) 0.4 X10'3 (0-0.9); MONOCYTES % (AUTO) 5.7 % (2-12); NEUTROPHILS # (AUTO) 3.1 X10'3 (1.8-7.7); PRE OP HEMATOCRIT 40.8 % (35.0-45.0); PRE OP HEMOGLOBIN 13.9 g/dL (12.0-16.0); PRE OP PLATELET COUNT 263 X10'3 (140-440); RED BLOOD COUNT 4.53 X10'6 (4.20-5.60); RED CELL DISTRIBUTION WIDTH 12.7 % (11.5-14.5)
[2020-06-08 16:39] LABS: ALBUMIN/GLOBULIN RATIO 1.1 (1.1-1.5); ALKALINE PHOSPHATASE 100 IU/L (46-116); BLOOD UREA NITROGEN 10 MG/DL (7-18); BUN/CREATININE RATIO 13.9 (6.6-38.0); CALCIUM 9.1 MG/DL (8.5-10.1); CHLORIDE 103 MMOL/L (99-107); CREATININE 0.72 MG/DL (0.40-0.90); PRE OP ANION GAP 8 (8-16); PRE OP BILIRUB, TOTAL 0.4 MG/DL (0.0-1.0); PRE OP GLUCOSE 131 MG/DL (70-104); PRE OP SODIUM 140 MMOL/L (135-145); TOTAL PROTEIN 7.5 G/DL (6.4-8.2); eGFR 86 ML/MIN
[2020-06-08 16:43] LABS: PRE OP ALT 142 U/L (30-65); PRE OP AST 121 U/L (10-37)
[~2020-06-15] VITALS: Ht 154.9 cm; Wt 96.2 kg
[2020-06-15] VITALS (11 sets, daily range): BP systolic 116–178; BP diastolic 74–92
[~2020-06-15 06:03] MED LIST changes: +BUSP5TAB3 PO; +DULO20CA18 PO; +GLIM1TAB6 PO; -LIDOcaine Viscous 15ml cup MM ONE; +PANT40TA54 PO; +VIT D3 PO; +ceFAZolin 2gm in dextrose, iso 50 ML IV ONE; +famotidine 20mg tablet PO ONE; -normal saline 500ml IV soln 500 ML IV ONE; +ringers solution, lacted 1,000 ML IV SCH; -simethicone 40mg/0.6ml oral drops 30ml PO ONE
[2020-06-15] MEDS ORDERED: BUPIVAcaine/PF 2.5 mg/ml (0.25%) 30ml vial ONE (06:42)
[2020-06-15] MEDS ORDERED: fentaNYL/PF 50MCG/1 ML 2ML syringe ONE (09:42)
[2020-06-15] MEDS ORDERED: midazolam 2 mg/2 ml injection ONE (09:43)
[2020-06-15] MEDS ORDERED: sevoflurane 250ml liquid IH ONE (09:43)
[2020-06-15] MEDS ORDERED: meperidine/PF 25mg/ml syringe IV PRN ×2 (10:05)
[2020-06-15] MEDS ORDERED: morphine 2 MG/ML inj. syringe IV PRN (10:05)
[2020-06-15] MEDS ORDERED: morphine 4 MG/ML inj SYRINge IV PRN (10:05)
[2020-06-15] MEDS ORDERED: proCHLORperazine 10 MG/2 ml inj IV PRN (10:05)
[2020-06-15] MEDS ORDERED: ringers solution, lacted 1,000 ML IV SCH (10:05)
[2020-06-15] MEDS ORDERED: ondansetron/PF 4mg/2ml inj IV PRN (10:05)
[2020-06-15] MEDS ORDERED: propofol inj 20 ML IV ONE (10:10)
[2020-06-15] MEDS ORDERED: ondansetron/PF 4mg/2ml inj ONE (10:10)
[2020-06-15] MEDS ORDERED: glycopyrrolate 0.2mg/ml inj ONE (10:10)
[2020-06-15] MEDS ORDERED: rocuronium 10mg/ml inj IV ONE (10:10)
[2020-06-15] MEDS ORDERED: acetaminophen 1,000mg/100ml IV 100 ML IV ONE (10:10)
[2020-06-15] MEDS ORDERED: LIDOcaine 1%/PF 5ML 10 MG/ML VIAL ONE (10:10)
[2020-06-15] MEDS ORDERED: ROPIVAcaine 0.5% (5mg/ml) 30ml vial ONE (10:10)
[2020-06-15] MEDS ORDERED: neostigmine methylsulfate 1 MG/ML 10ml vial ONE (10:10)
--- NOTE | 2020-06-15 11:00 | NUR ---
Received from OR via BOO, accompanied by Anesthesiologist DR MOON and report given by Anesthesiologist. PT VERY DROWSY, NO S/S OF DISTRESS/DISCOMFORT. 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 Addendum: 06/15/20 at 1143 by Snehal Toscano RN Amended: Links added.
[2020-06-15] MEDS: meperidine/PF 25mg/ml syringe IV PRN ×2 (11:50→12:01)
--- NOTE | 2020-06-15 12:50 | NUR ---
PT UP AND ABLE TO AMBULATE SAFELY, D/C INSTRUCTIONS GIVEN AND GONE OVER W/PT WHO VERBALIZED UNDERSTANDING. PT D/CD TO HOME VIA W/C TO PRIVATE VEHICLE W/O INCIDENT. Addendum: 06/15/20 at 1306 by Snehal Toscano RN Amended: Links added.
== END 2020-06-15 12:50 | disposition home or self-care (01) ==
LOC: PAS 06:03
PROVIDERS: ATTEND Orthopaedic Surgery Hand Surgery
DX: T85.848S Pain due to other internal prosthetic devices, implants and grafts, sequela (principal); F41.9 Anxiety disorder, unspecified; M06.9 Rheumatoid arthritis, unspecified; E11.9 Type 2 diabetes mellitus without complications; E66.9 Obesity, unspecified; Z68.37 Body mass index [BMI] 37.0-37.9, adult; K21.9 Gastro-esophageal reflux disease without esophagitis; I10 Essential (primary) hypertension; G47.30 Sleep apnea, unspecified; G89.18 Other acute postprocedural pain; Z79.899 Other long term (current) drug therapy; Z98.890 Other specified postprocedural states; Z90.710 Acquired absence of both cervix and uterus; Z87.442 Personal history of urinary calculi; Z79.84 Long term (current) use of oral hypoglycemic drugs; Z88.1 Allergy status to other antibiotic agents; Z72.89 Other problems related to lifestyle; X58.XXXS Exposure to other specified factors, sequela
CPT/HCPCS: 25999; 36415; 64417; 76942; 80053; 82948; 85025; 87635; 93005; A6402; C9359; J0131; J2175; J2250; J2405; J2704; J2710; J3010; J3490; J7120; A4215; A4618; A7000; J2795

== ENCOUNTER 2021-03-07 19:08 | Emergency (ER) | payer MEDICARE, MEDICAID ==
[~2021-03-07] VITALS: Ht 157.5 cm; Wt 97.3 kg
[~2021-03-07 19:08] MED LIST changes: +LISI10TA27 PO; -LISI10TA4 PO; -ceFAZolin 2gm in dextrose, iso 50 ML IV ONE; -famotidine 20mg tablet PO ONE; -ringers solution, lacted 1,000 ML IV SCH
[2021-03-07 20:27] LABS: BASOPHILS # (AUTO) 0.1 X10'3 (0-0.2); BASOPHILS % (AUTO) 0.6 % (0-1); EOSINOPHILS # (AUTO) 0.2 X10'3 (0-0.9); EOSINOPHILS % (AUTO) 1.7 % (0-6); HEMOGLOBIN 13.6 g/dl (12.0-16.0); LYMPHOCYTES # (AUTO) 3.8 X10'3 (1.1-4.8); LYMPHOCYTES % (AUTO) 41.4 % (21-51); MEAN CORPUSCULAR HEMOGLOBIN 29.4 PG (27.0-31.0); MEAN CORPUSCULAR HGB CONC 33.3 g/dL (33.0-36.5); MEAN CORPUSCULAR VOLUME 88.4 FL (78-98); MEAN PLATELET VOLUME 8.5 FL (7.4-10.4); MONOCYTES # (AUTO) 0.6 X10'3 (0-0.9); MONOCYTES % (AUTO) 6.5 % (2-12); NEUTROPHILS # (AUTO) 4.6 X10'3 (1.8-7.7); NEUTROPHILS % (AUTO) 49.8 % (42-75); PLATELET COUNT 291 X10'3 (140-440); RED BLOOD COUNT 4.63 X10'6 (4.20-5.60); WHITE BLOOD COUNT 9.3 X10'3 (4.5-11.0)
[2021-03-07 20:40] LABS: ALANINE AMINOTRANSFERASE 133 U/L (12-78); ALBUMIN/GLOBULIN RATIO 1.2 (1.1-1.5); ALKALINE PHOSPHATASE 96 IU/L (46-116); ANION GAP 11 (8-16); ASPARTATE AMINO TRANSFERASE 88 U/L (10-37); BILIRUBIN,TOTAL 0.4 MG/DL (0.1-1.0); BLOOD UREA NITROGEN 14 MG/DL (7-18); BUN/CREATININE RATIO 18.7 (6.6-38.0); CALCIUM 9.3 MG/DL (8.5-10.1); CHLORIDE 106 MMOL/L (99-107); CREATININE 0.75 MG/DL (0.40-0.90); GLUCOSE 111 MG/DL (70-104); POTASSIUM 3.6 MMOL/L (3.5-5.1); SODIUM 143 MMOL/L (135-145); TOTAL CARBON DIOXIDE 26.5 MMOL/L (24-32); TOTAL PROTEIN 7.4 G/DL (6.4-8.2); eGFR 81 ML/MIN
[2021-03-07] MEDS ORDERED: ondansetron 4mg rapidly disintigrating tab PO ONE (21:25)
[2021-03-07] MEDS ORDERED: HYDROcodone/acetaminophen 5mg/325mg tablet PO ONE (21:25)
[2021-03-07 23:31] VITALS: BP 111/66
== END 2021-03-07 23:33 | disposition home or self-care (01) ==
LOC: ER 19:10
DX: R07.89 Other chest pain (principal); E78.00 Pure hypercholesterolemia, unspecified; I10 Essential (primary) hypertension; E11.9 Type 2 diabetes mellitus without complications; Z87.442 Personal history of urinary calculi; Z87.440 Personal history of urinary (tract) infections; Z88.1 Allergy status to other antibiotic agents; Z79.82 Long term (current) use of aspirin; Z79.84 Long term (current) use of oral hypoglycemic drugs; Z79.899 Other long term (current) drug therapy
CPT/HCPCS: 36415; 71045; 80053; 83880; 84484; 85025; 93005; 99285

== ENCOUNTER 2022-04-22 09:00 | Day surgery (SDC) | payer MEDICARE, OTHER ==
[2022-04-19 10:52] LABS: BASOPHILS % (AUTO) 0.7 % (0-1); EOSINOPHILS # (AUTO) 0.1 X10'3 (0-0.9); EOSINOPHILS % (AUTO) 2.2 % (0-6); LYMPHOCYTES # (AUTO) 2.6 X10'3 (1.1-4.8); LYMPHOCYTES % (AUTO) 40.2 % (21-51); MEAN CORPUSCULAR HEMOGLOBIN 21.8 PG (27.0-31.0); MEAN CORPUSCULAR HGB CONC 31.3 g/dL (33.0-36.5); MEAN CORPUSCULAR VOLUME 69.8 FL (78-98); MEAN PLATELET VOLUME 7.6 FL (7.4-10.4); MONOCYTES # (AUTO) 0.3 X10'3 (0-0.9); NEUTROPHILS # (AUTO) 3.4 X10'3 (1.8-7.7); NEUTROPHILS % (AUTO) 51.9 % (42-75); PRE OP HEMOGLOBIN 11.3 g/dL (12.0-16.0); PRE OP PLATELET COUNT 388 X10'3 (140-440); RED BLOOD COUNT 5.16 X10'6 (4.20-5.60); RED CELL DISTRIBUTION WIDTH 16.5 % (11.5-14.5)
[2022-04-19 11:03] LABS: ANISOCYTOSIS 1+; MICROCYTOSIS 2+; PLATELET ESTIMATE NORMAL
[2022-04-19 11:10] LABS: ALKALINE PHOSPHATASE 96 IU/L (46-116); BLOOD UREA NITROGEN 15 MG/DL (7-18); BUN/CREATININE RATIO 21.4 (6.6-38.0); CHLORIDE 104 MMOL/L (99-107); PRE OP ALT 68 U/L (30-65); PRE OP ANION GAP 11 (8-16); PRE OP AST 48 U/L (10-37); PRE OP BILIRUB, TOTAL 0.3 MG/DL (0.0-1.0); PRE OP GLUCOSE 169 MG/DL (70-104); PRE OP SODIUM 141 MMOL/L (135-145); TOTAL CARBON DIOXIDE 26.4 MMOL/L (24-32); TOTAL PROTEIN 7.3 G/DL (6.4-8.2); eGFR 88 ML/MIN
[2022-04-19 11:12] LABS: ALBUMIN 3.7 G/DL (3.4-5.0)
[2022-04-22] VITALS (7 sets, daily range): BP systolic 104–137; BP diastolic 62–80
[~2022-04-22] VITALS: Ht 157.5 cm; Wt 93.8 kg
[~2022-04-22 09:00] MED LIST changes: -BUSP5TAB3 PO; -CITA40TA17 PO; -DULO20CA18 PO; +DULO30CA52 PO; -GLIM1TAB6 PO; +GLIM2TAB6 PO; -LACT1CAP65 PO; +METF-900 PO; -METF500T PO; +PIOG15TA67 PO; -VIT D3 PO; +ceFAZolin inj. 2,000 MG in dextrose 5%-water 100 ML IV ONE; +famotidine 20mg tablet PO ONE; +ringers solution, lacted 1,000 ML IV SCH
[2022-04-22] MEDS ORDERED: labetalol 20mg/4ml (5mg/ml) syringe IV PRN (10:55)
[2022-04-22] MEDS ORDERED: morphine 4 MG/ML inj SYRINge IV PRN (10:55)
[2022-04-22] MEDS ORDERED: ringers solution, lacted 1,000 ML IV SCH (10:55)
[2022-04-22] MEDS ORDERED: hydrALAZINE 20mg/ml inj. IV PRN (10:55)
[2022-04-22] MEDS ORDERED: proCHLORperazine 10 MG/2 ml inj IV PRN (10:55)
[2022-04-22] MEDS ORDERED: meperidine/PF 25mg/ml syringe IV PRN (10:55)
[2022-04-22] MEDS ORDERED: morphine 2 MG/ML inj. syringe IV PRN (10:55)
[2022-04-22] MEDS ORDERED: HYDROmorphone/PF 0.2 MG/ML SYRINGE IV PRN ×2 (10:55)
[2022-04-22] MEDS ORDERED: ondansetron/PF 4mg/2ml inj IV PRN (10:55)
[2022-04-22] MEDS ORDERED: ketorolac trometh. 30mg/ml inj. IV ONE (10:55)
[2022-04-22] MEDS ORDERED: acetaminophen 1,000mg/100ml IV 100 ML IV PRN (10:55)
--- NOTE | 2022-04-22 11:00 | NUR ---
PEPCID AND LR ADMIN. PER PROTOCOL. MEDS DIDNOT SAVE TO [facility]
[2022-04-22] MEDS ORDERED: cloNIDine hcl/PF 100mcg/ml inj ONE (12:21)
[2022-04-22] MEDS ORDERED: BUPIVAcaine/PF 2.5mg/ml (0.25%) 10ml vial ONE (12:26)
[2022-04-22] MEDS ORDERED: propofol 10mg/ml 20ml vial IV ONE (12:46)
[2022-04-22] MEDS ORDERED: sevoflurane 250ml liquid IH ONE (12:46)
[2022-04-22] MEDS ORDERED: midazolam 1 mg/ML 2ml injection ONE (12:48)
[2022-04-22] MEDS ORDERED: fentaNYL /PF 50mcg/ml 5ml ampule ONE (12:51)
[2022-04-22] MEDS ORDERED: ondansetron/PF 4mg/2ml inj ONE (13:11)
[2022-04-22] MEDS ORDERED: ROPIVAcaine 0.5% (5mg/ml) 30ml vial ONE (13:11)
[2022-04-22] MEDS ORDERED: dexamethasone sod phosphate 4mg/ml inj. ONE (13:11)
[2022-04-22] MEDS ORDERED: LIDOcaine 2% (20mg/ml) 5ml vial ONE ×2 (13:11)
--- NOTE | 2022-04-22 13:55 | NUR ---
Received from OR via BOO , accompanied by Anesthesiologist CHASE and report given by Anesthesiolgist. PATIENT WITH 20G PIV IN RIGHT UE RUNNING LR AT THIS TIME.LEFT WRIST DRESSING IS CDI. FINGERS PWD WITH + CAP REFILL. 10L MASK ON WITH 97% SATURATIONS. Addendum: 04/22/22 at 1406 by Zacarias Guerrero RN, RN Amended: Links added.
--- NOTE | 2022-04-22 14:35 | NUR ---
ALL DISCHARGE CRITERIA HAS BEEN MET. VSS, PAIN AT A TOLERABLE LEVEL, VOIDING AND ABLE TO SAFELY AMBULATE AND TRANSFER SELF. IV TAKEN OUT WITHOUT ANY COMPLICATIONS. ALL DISCHARGE INSTRUCTIONS COVERED WITH PATIENT AND ALL QUESTIONS ANSWERED. PATIENT TAKEN OUT VIA WHEELCHAIR TO PERSONAL VEHICLE WHERE FAMILY/FRIEND DROVE PATIENT HOME. Addendum: 04/22/22 at 1452 by Zacarias Guerrero RN, RN Amended: Links added.
== END 2022-04-22 14:35 | disposition home or self-care (01) ==
LOC: PAS 09:00
PROVIDERS: ATTEND Orthopaedic Surgery Hand Surgery
DX: M12.532 Traumatic arthropathy, left wrist (principal); F41.9 Anxiety disorder, unspecified; E11.9 Type 2 diabetes mellitus without complications; I10 Essential (primary) hypertension; K21.9 Gastro-esophageal reflux disease without esophagitis; M06.9 Rheumatoid arthritis, unspecified; Z88.8 Allergy status to other drugs, medicaments and biological substances; Z79.899 Other long term (current) drug therapy; Z98.890 Other specified postprocedural states; Z90.710 Acquired absence of both cervix and uterus; Z87.442 Personal history of urinary calculi; G89.18 Other acute postprocedural pain; Z72.89 Other problems related to lifestyle; Z20.822 Contact with and (suspected) exposure to COVID-19
CPT/HCPCS: 25240; 64417; 76942; 80053; 82948; 85025; 87811; 93005; A6222; J0690; J0735; J1100; J2250; J2405; J2704; J2795; J3010; J3490; J7030; J7060; J7120; Z7506; Z7508; Z7512; 85008; A4215; A4618; A6449; A7000

== ENCOUNTER 2022-10-30 18:17 | Emergency (ER) | payer MEDICARE, MEDICAID ==
[~2022-10-30] VITALS: Ht 157.5 cm; Wt 92.7 kg
[~2022-10-30 18:17] MED LIST changes: -ceFAZolin inj. 2,000 MG in dextrose 5%-water 100 ML IV ONE; -famotidine 20mg tablet PO ONE; -ringers solution, lacted 1,000 ML IV SCH
[2022-10-30 18:22] VITALS: BP 157/130
[2022-10-30 18:48] LABS: BASOPHILS % (AUTO) 0.4 % (0-1); EOSINOPHILS # (AUTO) 0.2 X10'3 (0-0.9); EOSINOPHILS % (AUTO) 1.8 % (0-6); HEMATOCRIT 33.1 % (35.0-45.0); HEMOGLOBIN 10.1 g/dl (12.0-16.0); LYMPHOCYTES # (AUTO) 3.5 X10'3 (1.1-4.8); LYMPHOCYTES % (AUTO) 35.8 % (21-51); MEAN CORPUSCULAR HEMOGLOBIN 20.5 PG (27.0-31.0); MEAN CORPUSCULAR HGB CONC 30.5 g/dL (33.0-36.5); MEAN CORPUSCULAR VOLUME 67.4 FL (78-98); MEAN PLATELET VOLUME 7.2 FL (7.4-10.4); MONOCYTES # (AUTO) 0.7 X10'3 (0-0.9); MONOCYTES % (AUTO) 7.6 % (2-12); NEUTROPHILS # (AUTO) 5.3 X10'3 (1.8-7.7); NEUTROPHILS % (AUTO) 54.4 % (42-75); PLATELET COUNT 523 X10'3 (140-440); RED BLOOD COUNT 4.92 X10'6 (4.20-5.60); RED CELL DISTRIBUTION WIDTH 18.4 % (11.5-14.5); WHITE BLOOD COUNT 9.7 X10'3 (4.5-11.0)
[2022-10-30 19:04] LABS: ALANINE AMINOTRANSFERASE 26 U/L (12-78); ALBUMIN 3.7 G/DL (3.4-5.0); ALKALINE PHOSPHATASE 103 IU/L (46-116); ANION GAP 8 (8-16); ASPARTATE AMINO TRANSFERASE 18 U/L (10-37); BILIRUBIN,TOTAL 0.4 MG/DL (0.1-1.0); BLOOD UREA NITROGEN 14 MG/DL (7-18); BUN/CREATININE RATIO 21.5 (10.0-20.0); CHLORIDE 105 MMOL/L (99-107); CREATININE 0.65 MG/DL (0.40-0.90); GLUCOSE 76 MG/DL (70-104); POTASSIUM 3.3 MMOL/L (3.5-5.1); SODIUM 142 MMOL/L (135-145); TOTAL CARBON DIOXIDE 28.8 MMOL/L (24-32); TOTAL PROTEIN 7.4 G/DL (6.4-8.2); eGFR > 90 ML/MIN
[2022-10-30 19:11] LABS: LIPASE < 50 U/L (73-393)
[2022-10-30 19:58] LABS: ANISOCYTOSIS 2+; MICROCYTOSIS 2+; PLATELET ESTIMATE INCREASED
[2022-10-30 19:59] LABS: POLYCHROMASIA FEW; SPHEROCYTES FEW
[2022-10-30 20:00] LABS: ELLIPTOCYTES FEW; LARGE PLATELETS FEW
[2022-10-30] MEDS ORDERED: potassium Cl 20 mEq SR tablet PO ONE (20:30)
[2022-10-30] MEDS ORDERED: ondansetron 4mg rapidly disintigrating tab PO ONE (21:00)
[2022-10-30] MEDS ORDERED: morphine 4 MG/ML inj SYRINge IM ONE (21:00)
[2022-10-30 21:41] LABS: URINE HCG NEGATIVE (NEG)
[2022-10-30 21:55] LABS: CLARITY,URINE CLEAR (Clear); COLOR,URINE YELLOW (Yellow); GLUCOSE, URINE >=1000 mg/dl (Neg); KETONES,URINE NEGATIVE (Neg); LEUKOCYTE ESTERASE ,URINE NEGATIVE (Neg); NITRITES, URINE NEGATIVE (Neg); OCCULT BLOOD,URINE NEGATIVE (Neg); PROTEIN,URINE NEGATIVE (Neg); UROBILINOGEN,URINE 0.2 E.U/dL (0.2-1.0)
[2022-10-30 21:56] LABS: UA COLLECTION TYPE CLN CATCH MIDSTREAM
[2022-10-30 22:04] LABS: RBC,URINE NONE SEEN /HPF (0-2); SQUAMOUS EPITHELIAL CELL,UR MANY /LPF (FEW); WBC,URINE 0-4 /HPF (0-4)
[2022-10-30 22:05] LABS: BACTERIA,URINE 1+ /HPF (Neg); YEAST FEW /HPF (NEGATIVE)
== END 2022-10-30 22:29 | disposition home or self-care (01) ==
LOC: ER 18:20
DX: R10.32 Left lower quadrant pain (principal); E87.6 Hypokalemia; I10 Essential (primary) hypertension; E78.00 Pure hypercholesterolemia, unspecified; E11.9 Type 2 diabetes mellitus without complications; Z98.890 Other specified postprocedural states; Z88.1 Allergy status to other antibiotic agents; Z79.899 Other long term (current) drug therapy; Z79.82 Long term (current) use of aspirin
CPT/HCPCS: 36415; 71045; 74176; 80053; 81001; 81025; 83690; 83880; 84484; 85008; 85025; 93005; 96372; 99285; J2270

== ENCOUNTER 2024-05-20 07:01 | Day surgery (SDC) | payer MEDICARE, MEDICAID ==
[2024-05-15 14:50] LABS: BASOPHILS # (AUTO) 0.1 X10'3 (0-0.2); BASOPHILS % (AUTO) 0.7 % (0-1); EOSINOPHILS # (AUTO) 0.1 X10'3 (0-0.9); EOSINOPHILS % (AUTO) 1.9 % (0-6); LYMPHOCYTES # (AUTO) 1.6 X10'3 (1.1-4.8); LYMPHOCYTES % (AUTO) 20.5 % (21-51); MEAN CORPUSCULAR HEMOGLOBIN 29.4 PG (27.0-31.0); MEAN CORPUSCULAR HGB CONC 32.8 g/dL (33.0-36.5); MEAN CORPUSCULAR VOLUME 89.5 FL (78-98); MEAN PLATELET VOLUME 8.3 FL (7.4-10.4); MONOCYTES # (AUTO) 0.4 X10'3 (0-0.9); MONOCYTES % (AUTO) 5.2 % (2-12); NEUTROPHILS # (AUTO) 5.8 X10'3 (1.8-7.7); NEUTROPHILS % (AUTO) 71.7 % (42-75); PRE OP HEMATOCRIT 40.4 % (35.0-45.0); PRE OP HEMOGLOBIN 13.3 g/dL (12.0-16.0); PRE OP PLATELET COUNT 293 X10'3 (140-440); RED BLOOD COUNT 4.51 X10'6 (4.20-5.60); RED CELL DISTRIBUTION WIDTH 16.1 % (11.5-14.5)
[2024-05-15 15:04] LABS: ALBUMIN 3.6 G/DL (3.4-5.0); ALBUMIN/GLOBULIN RATIO 1.1 (1.1-1.5); ALKALINE PHOSPHATASE 91 IU/L (46-116); BLOOD UREA NITROGEN 18 MG/DL (7-18); BUN/CREATININE RATIO 23.7 (10.0-20.0); CHLORIDE 104 MMOL/L (99-107); CREATININE 0.76 MG/DL (0.40-0.90); PRE OP ALT 18 U/L (30-65); PRE OP ANION GAP 8 (8-16); PRE OP AST 15 U/L (10-37); PRE OP BILIRUB, TOTAL 0.4 MG/DL (0.0-1.0); PRE OP GLUCOSE 167 MG/DL (70-104); PRE OP POTASSIUM 3.9 MMOL/L (3.4-5.1); PRE OP SODIUM 140 MMOL/L (135-145); TOTAL CARBON DIOXIDE 28.5 MMOL/L (24-32); eGFR 79 ML/MIN
[2024-05-20] VITALS (7 sets, daily range): BP systolic 117–137; BP diastolic 63–82; PULSE 63–74; RESP 10–16; TEMP 98.1; O2SAT 96–100
[~2024-05-20] VITALS: Ht 157.5 cm; Wt 94.2 kg
[2024-05-20] MEDS: cefazolin 2gm/D5W 100mL 100 ML IV ONE (05:30)
[~2024-05-20 07:01] MED LIST changes: -ASPI81TA52 PO; +ATOR20TA66 PO; +BUSP5TAB3 PO; +DAPA10TA PO; +ERGO500041 PO; -ETAN50DI3 SQ; +FOLI1TAB27 PO; +GABA300C PO; -GLIM2TAB6 PO; +LEVO112T5 PO; -METF-900 PO; +METH2.5T55 PO; +TEMA30CA PO
[2024-05-20] MEDS: famotidine 20mg tablet PO ONE (08:41)
[2024-05-20] MEDS: ringers solution, lacted 1,000 ML IV SCH (08:42)
[2024-05-20] MEDS ORDERED: LIDOcaine 2% (20mg/ml) 5ml vial ONE (09:19)
[2024-05-20] MEDS ORDERED: BUPIVAcaine/PF 2.5mg/ml (0.25%) 10ml vial ONE (09:20)
[2024-05-20] MEDS ORDERED: ondansetron/PF 4mg/2ml inj IV PRN (09:35)
[2024-05-20] MEDS ORDERED: labetalol 20mg/4ml (5mg/ml) syringe IV PRN (09:35)
[2024-05-20] MEDS ORDERED: HYDROmorphone/PF 0.2 MG/ML SYRINGE IV PRN (09:35)
[2024-05-20] MEDS ORDERED: ringers solution, lacted 1,000 ML IV SCH (09:35)
[2024-05-20] MEDS ORDERED: meperidine/PF 25mg/ml syringe IV PRN (09:35)
[2024-05-20] MEDS ORDERED: morphine 2 MG/ML inj. syringe IV PRN (09:35)
[2024-05-20] MEDS ORDERED: hydrALAZINE 20mg/ml inj. IV PRN (09:35)
[2024-05-20] MEDS ORDERED: fentaNYL/PF 50MCG/1 ML 2ML syringe ONE (09:38)
[2024-05-20] MEDS ORDERED: midazolam 1 mg/ML 2ml injection ONE (09:39)
[2024-05-20] MEDS: BUPIVAcaine/PF 2.5mg/ml (0.25%) 10ml vial IJ ONE (09:50)
[2024-05-20] MEDS ORDERED: propofol inj 20 ML IV ONE (09:59)
[2024-05-20] MEDS: acetaminophen 1,000mg/100ml IV 100 ML IV ONE (10:10)
[2024-05-20] MEDS: HYDROmorphone/PF 0.2 MG/ML SYRINGE IV PRN (10:14)
[2024-05-20] MEDS: morphine 4 MG/ML inj SYRINge IV PRN (10:31)
== END 2024-05-20 11:04 | disposition home or self-care (01) ==
LOC: PAS 07:01
PROVIDERS: ATTEND Orthopaedic Surgery Hand Surgery
DX: G56.01 Carpal tunnel syndrome, right upper limb (principal); R94.31 Abnormal electrocardiogram [ECG] [EKG]; I10 Essential (primary) hypertension; E11.9 Type 2 diabetes mellitus without complications; E89.0 Postprocedural hypothyroidism; E78.5 Hyperlipidemia, unspecified; K21.9 Gastro-esophageal reflux disease without esophagitis; M06.9 Rheumatoid arthritis, unspecified; F41.9 Anxiety disorder, unspecified; I25.2 Old myocardial infarction; M19.90 Unspecified osteoarthritis, unspecified site; Z85.850 Personal history of malignant neoplasm of thyroid; Z87.442 Personal history of urinary calculi; Z79.1 Long term (current) use of non-steroidal anti-inflammatories (NSAID); Z79.84 Long term (current) use of oral hypoglycemic drugs; Z79.890 Hormone replacement therapy; Z79.891 Long term (current) use of opiate analgesic; Z79.899 Other long term (current) drug therapy; Z90.710 Acquired absence of both cervix and uterus; Z98.891 History of uterine scar from previous surgery; Z98.890 Other specified postprocedural states; Z88.1 Allergy status to other antibiotic agents; Z88.8 Allergy status to other drugs, medicaments and biological substances
CPT/HCPCS: 36415; 64721; 80053; 82948; 85025; 93005; A4215; A6449; J0131; J0690; J1171; J2001; J2250; J2270; J2704; J3010; J3490; J7030; J7120; Z7506; Z7512; Z7610